=== PATIENT | female | born 1950 | race Caucasian/White ===

== ENCOUNTER 2021-08-29 10:10 | Outpatient (CLI) | payer MEDICARE | END 2021-08-29 10:11 | disposition home or self-care (01) | LOC: BICMRI 10:10 | PROVIDERS: ATTEND Family Medicine | DX: M54.14 Radiculopathy, thoracic region (principal); G89.4 Chronic pain syndrome; M43.9 Deforming dorsopathy, unspecified | CPT/HCPCS: 72072; 72146 ==